=== PATIENT | male | born 1960 | race Caucasian/White ===

== ENCOUNTER 2023-12-30 06:19 | Day surgery (SDC) | payer BC, SELFPAY ==
[2023-12-30] VITALS (12 sets, daily range): BP systolic 100–146; BP diastolic 76–96; PULSE 51–78; RESP 14–17; TEMP 36.1–36.8; O2SAT 91–97
--- OUTSIDE RECORDS SUMMARY | 2023-12-30 06:24 | XMS_ITS | Clinical Summary ---
Author Organization [facility] Address [place], [place] [address] Care Team Providers Care Process Validation Engineer Name Role Phone Marcy Kapadia MD Primary Care Provider [phone] Luigi Mina MD Unavailable [phone] Allergies Active Allergy Reactions Criticality Noted Date Comments Diclofenac Rash Unknown 12/11/2005 Medications Medication Sig Dispensed Refills Start Date End Date Status multivitamin (MVI) tablet Take 1 tablet by mouth once daily. 0 07/07/2019 Active acetaminophen (TYLENOL EXTRA STRGTH) 500 mg tablet Take 1,000 mg by mouth every 6 hours if needed. 03/22/2023 Active adalimumab (Humira,CF, Pen) 40 mg/0.4 mL pnktIndications:Anky losing spondylitis, unspecified site of spine (HC) Inject 40 mg subcutaneous every 2 weeks. 2 Each 5 08/11/2023 Active Active Problems Problem Noted Date Diagnosed Date Atypical nevus 06/30/2021 Overview: 06/2021 - Severely Atypical Nevus; on the right scapular back. Excised by Dr. Santos on 08/07/21. Skin cancer 06/30/2021 Overview: 06/2021 - BCC nodular and infiltrative types; on the right paraspinal back. Excised by Dr. Santos 08/07/21. 06/2021 - BCC nodular type; on the left mid back. Mohs 10/13/21 Dr. Bruce 06/2021 - BCC nodular and infiltrative types; on the right forehead. Mohs 10/13/21 Dr. Bruce PVC's (premature ventricular contractions), right bundle in V 1 05/05/2020 Ankylosing spondylitis 12/31/2016 Left nephrolithiasis 07/01/2016 Non-intractable cyclical vomiting 07/01/2016 Backache, unspecified Overview: Chronic, cervical and lumbar; question inflammatory Depressive disorder, not elsewhere classified Overview: situational Encounters Date Type Department Care Team Description 12/27/2023 Telephone [facility] [address] [place] [address] Nina Roman MD Form 12/24/2023 4:45 PM CDT - 12/24/2023 11:59 PM CDT Hospital Encounter [address] [address] Nina Roman MD Malignant melanoma of left upper extremity including shoulder (HC) 12/24/2023 1:40 PM CDT Preop Visit [facility] [address] [place] [address] Marcy Kapadia MD Preoperative Exam (DOS 12/30/23, [facility], Dr. Roman) 12/24/2023 Travel 12/07/2023 3:30 PM CDT Office Visit [facility] [address] [place] [address] Nina Roman MD Consult (Biopsy lymph node/Spot on left forearm ) 12/07/2023 Travel 11/30/2023 1:45 PM CDT Office Visit [facility] [address] [place] [address] Nina Roman MD Consult (Lesion on left arm referred by Dr. Kapadia) 11/30/2023 Travel 11/12/2023 1:00 PM CDT Office Visit [facility] [address] [place] [address] Marcy Kapadia MD Derm Problem (lesion on left arm, started a year ago, itches, shooting pain once in awhile, turning colors); Immunization/Injecti on 11/12/2023 Travel from Last 3 Months Immunizations Name Administration Dates Next Due COVID-19 vaccine ([employer] 30mcg/0.3mL) P F, MDV 10/02/2020,09/06/2020 Pneumococcal Conj 20-valent (Prevnar 20) 024 Td, Preservative Free (age >= 7 Years) 7 Zoster (Shingrix-RZV, recombinant) 11/12/2023, Family History Medical History Relation Name Comments Diabetes Father CABG, pacer Arthritis Maternal Aunt rheumatoid Arthritis Mother Other Paternal Aunt MS Relation Name Status Comments Father Maternal Aunt Mother Paternal Aunt Social History Tobacco Use Types Packs/Day Years Used Date Smoking Tobacco: Some Days Cigarettes 0.5 20 Smokeless Tobacco: Never Tobacco Cessation:Ready to Q uit: Not Asked; Counseling Given: Yes Comments:Approx 6 cigarettes per day Alcohol Use Standard Drinks/Week Comments Yes 28 (1 standard drink = 0.6 oz pu re alcohol) 2-3 beers daily Social Connections Answer Date Recorded Frequency of Communication with Friends and Fami ly 0 03/25/2023 Financial Resource Strain Answer Date R ecorded Difficulty of Paying Living Expenses 3 03/25/2023 Difficulty of Paying Living Expenses Not on file 03/25/2023 Food Insecurity Answer Date Recorded Worried About Running Out of Food in the Last Ye ar 1 03/25/2023 Transportation Needs Answer Date Record ed Lack of Transportation (Medical) 1 03/25/2023 Housing Stability Answer Date Recorded Unable to Pay for Housing in the Last Year 1 03/25/2023 Sex and Gender Information Value Date Recorded Sex Assigned at Not on file Gender Identity Not on file Sexual Orientation Not on file Obstetrics History Last Filed Vital Signs Vital Sign Reading Time Taken Comments Blood Pressure 108/70 12/24/2023 1:25 PM CDT Pulse 78 12/24/2023 1:25 PM CDT Temperature 37 ??C (98.6 ??F) 05/08/2020 4:45 PM [employer] Respiratory Rate 12 08/11/2023 11:28 AM CDT Oxygen Saturation 95% 12/24/2023 1:25 PM CDT Inhaled Oxygen Concentration - - Weight 83.9 kg (185 lb) 12/24/2023 1:25 PM CDT Height 175.3 cm (5' 9) 03/25/2023 1:23 PM CDT Body Mass Index 27.32 03/25/2023 1:23 PM CDT Plan of Treatment Upcoming Encounters Date Type Department Care Team (Late st Contact Info) Description 12/30/2023 8:00 AM CDT Office Visit [facility] [address] [place] [address] Nina Roman MD [address] [place] [address] 08/10/2024 11:00 AM CDT Office Visit [facility] [address] [facility] [address] [place] [address] Luigi Mina MD [address] [facility] [address] [place] [address] Health Maintenance Due Date Last Done Comments Tdap 09/04/1971 HIV for age 15-65 09/04/1975 Tetanus booster 08/04/2016 08/04/2006 Depression screening for age 12+ 12/31/2017 01/01/20 17 COVID-19 vaccine series ( season) 2023 04/10/2021, 10/02/2020, 09/06/2020 Influenza for age 50-64 01/23/2024 BMI (ht and wt on same day) for age 18+ 03/25/2024 03/25/2023, 02/02/2022, 05/06/2020, Additional history exists Colonoscopy through age 75 2026 2016 Lipids for age 45-75 11/11/2028 11/12/2023, 07/08/19 17 Hepatitis C screening for ag e 18-79 Completed 09/01/2016 Pneumococcal series for age 6-64 Completed 11/12/19 24 Zoster (shingles) series for age 50+ Completed 11/12/2023, 05/01/2021 Medical Devices Implanted Type Area Employee Benefits Manager Device Identifier Shelf Expiration Date Model / Serial / Lot [id number] - [id number] Implanted:Qt y: 1 on 05/08/2020 by Ramo Dacosta MD at [facility] General Surgery Implants Right: Inguinal 11/18/2024 [id number] / / [id number] Stent Ultra 5fr 24cm [id number] - [place] Only - [id number] Implanted:Qt y: 1 on 07/02/2016 by Tez Munoz MD at [facility] Left: [employer] 03/10/2019 [id number]# / / [id number] Mesh Inguinal Lt 4.1x6.2in 3-Dlight - [id number] Implanted:Qt y: 1 on 05/08/2020 by Ramo Dacosta MD at [facility] Right: Inguinal [employer] 12/18/2024 [id number] / / [id number] Procedures Procedure Name Priority Date/Time Associated Diagnosis Comments PET CT WHOLE BODY INITIAL TREAT Routine 12/24/2023 6:04 PM CDT Malignant melanoma of left upper extremity including shoulder (HC) CBC WITH AUTO DIFFERENTIAL Routine 12/24/2023 1:50 PM CDT Pre-op exam BASIC METABOLIC PANEL Routine 12/24/2023 1:50 PM CDT Pre-op exam CBC WITH AUTO DIFFERENTIAL Routine 12/24/2023 1:50 PM CDT Pre-op exam PATH TISSUE EXAM Routine 11/30/2023 2:00 PM CDT Skin lesion of left arm CBC WITH AUTO DIFFERENTIAL Routine 11/12/2023 1:14 PM CDT Medication management PSA TOTAL SCREEN Routine 11/12/2023 1:14 PM CDT Screening PSA (prostate specific antigen) HEMOGLOBIN A1C Routine 11/12/2023 1:14 PM CDT Medication management TSH WITH REFLEX Routine 11/12/2023 1:14 PM CDT Medication management LIPID PANEL W REFLEX MEASURED LDL Routine 11/12/2023 1:14 PM CDT Medication management CBC WITH AUTO DIFFERENTIAL Routine 11/12/2023 1:14 PM CDT Medication management COMP METABOLIC PANEL Routine 11/12/2023 1:14 PM CDT Medication management SCAN-COLONOSCOPY 2016 1:00 PM CDT ANTI HCV Routine 09/01/2016 1:25 PM CDT Ankylosing spondylitis (HC) from Last 3 Months or Most Recently Relevant to Health Maintenance Results * PET CT WHOLE BODY INITIAL TREAT (12/24/2023 6:04 PM CDT) Anatomical Region Laterality Modality Positron Emissio n Tomography (PET) 12/24/2023 6:04 PM CDT Impressions 12/27/2023 3:34 PM CDT No metabolic evidence of active neoplasm Narrative 12/27/2023 3:34 PM CDT For Patients: As a result of the Century Cures Act, medical imaging exams and procedure reports are released immediately into your electronic medical record. You may view this report before your referring provider. If you have questions, please contact your health care provider. EXAM: PET CT WHOLE BODY INITIAL TREAT LOCATION: [facility] DATE: 12/24/2023 INDICATION: Initial treatment planning and staging for malignant melanoma of left upper limb, including shoulder. Index lesion in the left forearm status post excision COMPARISON: None available at time of dictation TECHNIQUE: Serum glucose level 69 mg/dL. One hour post intravenous administration of FDG 12.29 mCi, PET imaging was performed from the skull vertex to feet, utilizing attenuation correction with concurrent axial CT and PET/CT image fusion. Dose reduction techniques were used. FINDINGS: Degenerative shoulder, the, and right L5-S1 facet joint synovitis. The remaining FDG uptake is physiologic the skull vertex to feet. No acute intracranial abnormality. Mild coronary artery calcium. The lungs are clear. Left renal cysts. Nonobstructing renal calculi. Cholelithiasis. Sigmoid diverticulosis. Multilevel degenerative changes of the spine. The lower extremities are unremarkable. Procedure Note Jose Banegas MD - 12/27/2023 For Patients: As a result of the Cures Act, medical imagingexams and procedure reports are released immediately into your electronicmedical record. You may view this report before your referring provider.If you have questions, please contact your health care provider. EXAM: PET CT WHOLE BODY INITIAL TREAT LOCATION: [facility] DATE: 12/24/2023 INDICATION: Initial treatment planning and staging for malignant melanomaof left upper limb, including shoulder. Index lesion in the left forearmstatus post excision COMPARISON: None available at time of dictation TECHNIQUE: Serum glucose level 69 mg/dL. One hour post intravenousadministration of FDG 12.29 mCi, PET imaging was performed from the skullvertex to feet, utilizing attenuation correction with concurrent axial CTand PET/CT image fusion. Dose reduction techniques were used. FINDINGS: Degenerative shoulder, the, and right L5-S1 facet jointsynovitis. The remaining FDG uptake is physiologic the skull vertex tofeet. No acute intracranial abnormality. Mild coronary artery calcium. The lungsare clear. Left renal cysts. Nonobstructing renal calculi. Cholelithiasis.Sigmoid diverticulosis. Multilevel degenerative changes of the spine. Thelower extremities are unremarkable. IMPRESSION: No metabolic evidence of active neoplasm Nina Roman MD PET * (ABNORMAL) CBC WITH AUTO DIFFERENTIAL (12/24/2023 1:50 PM CDT) Only the most recent of2 resultswithin the time period is included. WHITE BLOOD COUNT 5.6 4.5 - 11.0 thou/cu mm 12/24/2023 2:19 PM CDT [facility] RED BLOOD COUNT 4.11(L) 4.30 - 5.90 mil/cu mm 12/24/2023 2:19 PM CDT [facility] HEMOGLOBIN 14.4 13.5 - 17.5 g/dL 12/24/2023 2:19 PM CDT [facility] HEMATOCRIT 42.0 37.0 - 53.0 % 12/24/2023 2:19 PM CDT [facility] MCV 102(H) 80 - 100 fL 12/24/2023 2:19 PM CDT [facility] MCH 35.0(H) 26.0 - 34.0 pg 12/24/2023 2:19 PM CDT [facility] MCHC 34.3 32.0 - 36.0 g/dL 12/24/2023 2:19 PM CDT [facility] RDW 11.0(L) 11.5 - 15.5 % 12/24/2023 2:19 PM CDT [facility] PLATELET COUNT 213 140 - 440 thou/cu mm 12/24/2023 2:19 PM CDT [facility] MPV 10.0 6.5 - 11.0 fL 12/24/2023 2:19 PM CDT [facility] % NEUT 61.8 % 12/24/2023 2:19 PM CDT [facility] % LYMPH 28.2 % 12/24/2023 2:19 PM CDT [facility] % MONO 8.2 % 12/24/2023 2:19 PM CDT [facility] % EOS 1.4 % 12/24/2023 2:19 PM CDT [facility] % BASO 0.4 % 12/24/2023 2:19 PM CDT [facility] ABSOLUTE NEUTROPHILS 3.5 1.7 - 7.0 thou/cu mm 12/24/2023 2:19 PM CDT [facility] ABSOLUTE LYMPHOCYTES 1.6 0.9 - 2.9 thou/cu mm 12/24/2023 2:19 PM CDT [facility] ABSOLUTE MONOCYTES 0.5 <0.9 thou/cu mm 12/24/2023 2:19 PM CDT [facility] ABSOLUTE EOSINOPHILS 0.1 <0.5 thou/cu mm 12/24/2023 2:19 PM CDT [facility] ABSOLUTE BASOPHILS 0.0 <0.3 thou/cu mm 12/24/2023 2:19 PM CDT [facility] Blood BLOOD SPECIMEN / Unknown Venipuncture / Unknown 12/24/2023 1:50 PM CDT 12/24/2023 1:53 PM CDT Marcy Kapadia MD HEMATOLOGY [facility] [address] [place] [address], * BASIC METABOLIC PANEL (12/24/2023 1:50 PM CDT) SODIUM 141 136 - 145 mmol/L 12/24/2023 11:05 PM CDT [facility] POTASSIUM 4.0 3.5 - 5.1 mmol/L 12/24/2023 11:05 PM CDT [facility] CHLORIDE 104 98 - 107 mmol/L 12/24/2023 11:05 PM CDT [facility] CO2,TOTAL 24 22 - 29 mmol/L 12/24/2023 11:05 PM CDT [facility] ANION GAP 13 5 - 18 12/24/2023 11:05 PM CDT [facility] GLUCOSE 86 70 - 99 mg/dL 12/24/2023 11:05 PM CDT [facility] CALCIUM 9.2 8.8 - 10.2 mg/dL 12/24/2023 11:05 PM CDT [facility] BUN 11 8 - 23 mg/dL 12/24/2023 11:05 PM CDT [facility] CREATININE 0.76 0.70 - 1.20 mg/dL 12/24/2023 11:05 PM T [facility] BUN/CREAT RATIO 14 10 - 20 11:05 PM T [facility] eGFR >90 >90 mL/min/1.7 3m2 12/24/2023 11:05 PM T [facility] Comment:As of 2021, eG FR is calculated by the CKD-EPI creatinine equation without race adjustment. ??eGFR can be influenced by muscle mass, exercise, and diet. ??The reported eGFR is an estimation only and is only applicable if the renal function is stable. Blood BLOOD SPECIMEN / Unknown Venipuncture / Unknown 12/24/2023 1:50 PM CDT 12/24/2023 1:53 PM CDT Marcy Kapadia MD CHEMISTRY [facility] [address] [place] [address], * PATH TISSUE EXAM (11/30/2023 2:00 PM CDT) Case Report Pathology Report ?Case: [id number] ? Authorizing Provider: ??Nina Roman MD ??Collected: ? 11/30/2023 1400 ? Ordering Location: ? [facility] ?? Received: ?11/30/2023 1426 ? Clinic ? Pathologist: ? Eduardo Chung MD ? Specimen: ?Left Arm, left upper arm lesion- stitch at 12 oclock or proximal ? 4 4:38 PM CDT [facility] Final Diagnosis A) SKIN, LEFT ARM, EXCISION: 1. Malignant melanoma ?? a. Maximum depth of invasion: at least 12 mm ?? b. Ulceration: Present ?? c. Margins: Peripheral: Negative; Deep: Positive 2. See comment and staging parameters below 4 4:38 PM CDT [facility] Comment A) Re-excision to obtain 2.0 cm negative margins and consideration of sentinel lymph node biopsy is recommended. Dr. Chung communicated the findings to the office of Dr. Roman via secure chat message on 12/03/2023. Case seen in consultation with Dr. Mccall. 4 4:38 PM CDT [facility] Clinical Information left upper arm lesion 4 4:38 PM T [facility] Gross Description A) Received in formalin, labeled with the patient's name and left arm lesion, is a 4.6 x 2.3 x 1.6 cm oriented skin ellipse with a suture designating 12:00. The skin surface is remarkable for a 1.6 x 1.4 x 0.6 cm raised, variegated-brown crusted lesion that is 0.2 cm from the nearest 9:00 margin. The specimen is inked as follows: 12-3 o'clock: Blue 3-6 o'clock: Green 6-9 o'clock: Red 9-12 o'clock: Yellow The specimen is entirely submitted as follows: 1. ??Tips 2-8. ??Remainder of specimen, sequentially submitted from 12:00 to 6:00 (biopsy site in cassettes 3-6) [facility] 12/01/2023 4 4:38 PM CDT [facility] Microscopic Description The final diagnosis is based on microscopic examination of appropriate sections of all specimens. A) There is a proliferation of atypical melanocytes arranged as solitary units and as nests within the epidermis. The atypical melanocytes extend into the underlying dermis. There is an associated patchy inflammatory cell infiltrate with melanophages within the superficial dermis. Immunohistochemical stains were performed (on block A4) to assess the nature of the tumor with the following results: SOX10: ? Positive in tumor cells PRAME: ? Positive (approximately 80% labeling of the lesional cells by manual morphometry) Melan-A: ? Positive in tumor cells Cytokeratin cocktail: ?Negative in tumor cells INI1: ?Retained nuclear expression in the lesional cells BAP1: ?Retained nuclear expression in the lesional cells SMA: ? Negative in tumor cells Desmin: ?Negative in tumor cells The presence of multicolored ink is confirmed on tissue sections. Support for the interpretation of this case may have included the use of immunohistochemistry and/or in situ hybridization tests that were performed by [facility] and whose performance characteristics were evaluated by pathologists from [facility]. These tests have not been cleared or approved by the U.S. Food and Drug Administration. The FDA has determined that such clearance or approval is not necessary. These tests are used for clinical purposes and should not be regarded as investigational or for research. This laboratory is certified under the Clinical Laboratory Improvement Amendments of 1988 (CLIA) as qualified to perform high complexity clinical laboratory testing. 4 4:38 PM CDT [facility] SYNOPTIC REPORTING MELANOMA OF THE SKIN: Excision, Re-Excision MELANOMA OF THE SKIN: EXCISION, RE-EXCISION ??- All Specimens 8th Edition - Protocol posted: 04/02/2021 SPECIMEN ?? Procedure: ?Excision ?? Specimen Laterality: ?Left TUMOR ?? Tumor Site: ?Skin of upper limb and shoulder: Left arm ?? Histologic Type: ?Nodular melanoma ?? Maximum Tumor (Breslow) Thickness (Millimeters): ?12 mm ?? Macroscopic Satellite Nodule(s): ?Not identified ?? Ulceration: ?Present ? Extent of Ulceration (Millimeters): ?4 mm ?? Anatomic (Ravi) Level: ?V (Melanoma invades subcutis) ?? Mitotic Rate: ?7 mitoses per mm2 ?? Microsatellite(s): ?Not identified ?? Lymphovascular Invasion: ?Not identified ?? Neurotropism: ?Present ?? Tumor-Infiltrating Lymphocytes: ?Present, nonbrisk ?? Tumor Regression: ?Not identified ?? MARGINS: ? Margin Status for Invasive Melanoma: ?Invasive melanoma present at margin ? Margin(s) Involved by Invasive Melanoma: ?Deep ? Margin Status for Melanoma in situ: ?All margins negative for melanoma in situ ?? REGIONAL LYMPH NODES: ? Regional Lymph Node Status: ?Not applicable (no regional lymph nodes submitted or found) ?? PATHOLOGIC STAGE CLASSIFICATION (pTNM, AJCC 8th Edition): ? pT Category: ?pT4b ? pN Category: ?pN not assigned (no nodes submitted or found) 4 4:38 PM CDT [facility] Additional Information Interpreted at [facility] - [address] [facility] [address], [place] [address] Immunohistochemistry controls were reviewed and approved by the pathologist during this examination. 4 4:38 PM CDT [facility] Other (Left Arm) Non-Blood / Unknown 11/30/2023 2:00 PM CDT 11/30/2023 2:26 PM CDT Nina Roman MD PATHOLOGY/CYTOLO GY Performing Organization Address [facility]/ZIP Co de Phone Number [facility] [address] [place] [id number], [place] * TSH WITH REFLEX (11/12/2023 1:14 PM CDT) TSH 3.09 0.27 - 4.20 uIU/mL 11/12/2023 10:05 PM CDT [facility] Blood BLOOD SPECIMEN / Unknown Venipuncture / Unknown 11/12/2023 1:14 PM CDT 11/12/2023 1:15 PM CDT Narrative [facility] - 11/12/2023 10:05 PM CDT In Adults, TSH values between 5.00 and 10.00 uIU/ml do not necessarily indicate the presence of Hypothyroidism. Correlation with clinical findings such as presence of goiter and/or Thyroperoxidase (TPO) Antibody may be helpful. For more information please refer to SOTO 2004; 291: 228-238. Marcy Kapadia MD CHEMISTRY Performing Organization Address City/[facility]/ZIP Co de Phone Number [facility] [address] [place] [id number], * (ABNORMAL) LIPID PANEL W REFLEX MEASURED LDL (11/12/2023 1:14 PM CDT) CHOLESTEROL,TOTAL 187 100 - 199 mg/dL 11/12/2023 10:05 PM CDT [facility] Comment: Cholesterol, Total Reference Ranges Desirable <200 mg/dL Borderline 200-239 mg/dL High >=240 mg/dL TRIGLYCERIDES 211(H) <150 mg/dL 11/12/2023 10:05 PM CDT [facility] HDL CHOLESTEROL 80 >40 mg/dL 10:05 PM CDT [facility] NON-HDL CHOLESTEROL 107 <145 mg/dl 11/12/2023 10:05 PM CDT [facility] CHOL/HDL RATIO 2.34 <4.50 11/12/2023 10:05 PM CDT [facility] LDL CHOLESTEROL 65 <=130 mg/dL 11/12/2023 10:05 PM CDT [facility] VLDL CHOLESTEROL 42(H) <=30 mg/dL 11/12/2023 10:05 PM CDT [facility] PROVIDER ORDERED STATUS RANDOM 11/12/2023 10:[address] [facility] Blood BLOOD SPECIMEN / Unknown Venipuncture / Unknown 11/12/2023 1:14 PM CDT 11/12/2023 1:15 PM CDT Marcy Kapadia MD CHEMISTRY Performing Organization Address City/[facility]/ZIP Co de Phone Number [facility] [address] [place] [address], * HEMOGLOBIN A1C MONITORING (POCT) (11/12/2023 1:14 PM CDT) HEMOGLOBIN A1C MONITORING (POCT) 5.0 <=6.4 % 11/12/2023 1:37 PM CDT [facility] Blood BLOOD SPECIMEN / Unknown Venipuncture / Unknown 11/12/2023 1:14 PM CDT 11/12/2023 1:15 PM CDT Narrative [facility] - 11/12/2023 1:37 PM CDT ? (<=6.9%) ? Indicates good control ? (7.0% to 7.9%) ? Indicates fair control ? (>=8.0%) ? Indicates poor control ?? NOTE: ??These thresholds are guidelines and ?individual targets may vary. Falsely low levels may be seen with: Recent Transfusion, Recent Significant Blood Loss, Hemolytic Diseases, or Falsely elevated levels may be seen with: Untreated Anemias, Splenectomy ? Marcy Kapadia MD CHEMISTRY Performing Organization Address City/[facility]/ZIP Co de Phone Number [facility] [address] [place] [address], * (ABNORMAL) COMP METABOLIC PANEL (11/12/2023 1:14 PM CDT) SODIUM 140 136 - 145 mmol/L 11/12/2023 10:05 PM CDT [facility] POTASSIUM 3.5 3.5 - 5.1 mmol/L 11/12/2023 10:05 PM CDT [facility] CHLORIDE 103 98 - 107 mmol/L 11/12/2023 10:05 PM T [facility] CO2,TOTAL 29 22 - 29 mmol/L 11/12/2023 10:05 PM T [facility] ANION GAP 8 5 - 18 11/12/2023 10:05 PM T [facility] GLUCOSE 113(H) 70 - 99 mg/dL 11/12/2023 10:05 PM T [facility] CALCIUM 9.1 8.8 - 10.2 mg/dL 11/12/2023 10:05 PM T [facility] BUN 10 8 - 23 mg/dL 11/12/2023 10:05 PM T [facility] CREATININE 0.77 0.70 - 1.20 mg/dL 11/12/2023 10:05 PM T [facility] BUN/CREAT RATIO 13 10 - 20 4 10:05 PM T [facility] eGFR >90 >90 mL/min/1.7 3m2 11/12/2023 10:05 PM T [facility] Comment:As of 2021, eG FR is calculated by the CKD-EPI creatinine equation without race adjustment. ??eGFR can be influenced by muscle mass, exercise, and diet. ??The reported eGFR is an estimation only and is only applicable if the renal function is stable. ALBUMIN 3.7(L) 4.0 - 4.9 g/dL 11/12/2023 10:05 PM CDT [facility] PROTEIN,TOTAL 5.8(L) 6.0 - 8.0 g/dL 11/12/2023 10:05 PM CDT [facility] BILIRUBIN,TOTAL 1.0 0.0 - 1.2 mg/dL 11/12/2023 10:05 PM CDT [facility] ALK PHOSPHATASE 92 40 - 129 IU/L 11/12/2023 10:[address] [facility] ALT (SGPT) 24 10 - 50 IU/L 11/12/2023 10:[address] [facility] AST (SGOT) 29 10 - 50 IU/L 11/12/2023 10:[address] [facility] Blood BLOOD SPECIMEN / Unknown Venipuncture / Unknown 11/12/2023 1:14 PM CDT 11/12/2023 1:15 PM CDT Marcy Kapadia MD CHEMISTRY [facility] [address] [place] [address], * PSA TOTAL SCREEN (11/12/2023 1:14 PM CDT) PSA TOTAL (SCREEN) 0.38 <4.00 ng/mL 11/12/2023 10:05 PM CDT [facility] Blood BLOOD SPECIMEN / Unknown Venipuncture / Unknown 11/12/2023 1:14 PM CDT 11/12/2023 1:15 PM CDT Narrative [facility] - 11/12/2023 10:05 PM CDT The test method changed on 11/17/2022. If this test has been used for serial monitoring, rebaselining is recommended. Rebaselining consists of 2 measurements, collected 3-6 weeks apart. The Arianna Elecsys total PSA assay is an electrochemiluminescence immunoassay ECLIA performed on the Arianna May e immunoassay analyzers. Values obtained with different assay methods may be different and cannot be used interchangeably. Marcy Kapadia MD [facility] [address] [place] [address], * SCAN-COLONOSCOPY (2016 1:00 PM CDT) Narrative Procedure Note Lawrence Santos MD - 2016 11:16 AM CDT [address], [address], [place] [address] Patient Name: Simone Burgos Gender: Male Exam Date: 2016 Visit Number: [id number] Age: 56 Years Date of : 1960 Attending MD: Lawrence Santos MD Medical Record#: [id number] ----- Procedure: Colonoscopy Indications: Colorectal cancer screening Referring MD: Marcy Kapadia MD Primary MD: Marcy Kapadia MD Medications: Admitting Medications: 0.9% Normal Saline at TKO Intra Procedure Medications: Patient received monitored anesthesia care. Complications: No immediate complications Procedure: An examination of the heart and lungs was performed and found to be withinacceptable limits. The patient was therefore deemed a reasonablecandidate for endoscopy and monitored anesthesia care. The risks and benefits of the procedure were explained to the patient.After obtaining informed consent, the patient received monitoredanesthesia care and I passed the scope without difficulty via the rectum to the cecum. The appendiceal orificeand ic valve were identified. The scope was retroflexed during theexamination The quality of the prep was excellent (Miralax/Gatorade/2tablets Bisacodyl/Magnesium Citrate). This was a complete examination throughout the entire colon. Findings: Normal finding. Location - entire colon. Anal canal: normal Impression: Colon cancer screening Normal colonoscopy Plan Repeat colonoscopy in 10 years. If you have signs or symptoms of lower GI illness or a new diagnosis ofcolon cancer in an immediate family member, you should contact your GIprovider or your primary provider to discuss whether your next examshould be repeated sooner. We will attempt to contact you at appropriate intervals via [place] mail. Wemay not be able to find you or contact you at that time, therefore youshould know that the responsibility for following our recommendation restswith you. If you don't hear from us at the time your procedure is due,please contact our office to schedule an appointment. If your contactinformation should change, please contact our office so that we can updateyour records. Return to your primary care provider as needed. Recommendation Comments: Call if questions or concerns arise in theinterim-leave message with Marybeth Electronically signed by: Lawrence Santos MD 2016 Medications: Medication Dose Sig Description Comments Advil 200 mg tablet 200 mg take 2 tablet by ORAL route every 6 hours asneeded with food Allergies: Medication Name Ingredient Reaction Comment NO KNOWN DRUG ALLERGIES Vital Signs: Date Time Systolic Diastolic Height Weight BMI 2016 1214 PM 126 85 72 in 205.00 27.80 Race: Ethnicity: Not or Preferred Language: Israeli cc: Marcy Kapadia MD cc: Kang BARRERA, Marcy Kenyon [facility] [phone] Lawrence Santos MD OTHER * ANTI HCV (09/01/2016 1:25 PM CDT) HEPATITIS C ANTIBODY Non-Reacti ve Non-Reacti ve 09/01/2016 6:28 PM CDT [facility] Blood BLOOD SPECIMEN / Unknown Venipuncture / Unknown 09/01/2016 1:25 PM CDT 09/01/2016 1:26 PM CDT Narrative [facility] - 09/01/2016 6:28 PM CDT Antibodies to HCV not detected; does not exclude the possibility of exposure to HCV. Luigi Mina MD [facility] [address] [place] [address], from Last 3 Months or Most Recently Relevant to Health Maintenance Advance Directives * Full Code (Latest Code Status on File) Date Activated Date Inactivated Comments 05/08/2020 4:43 PM 05/08/2020 9:08 PM Question Answer Comments Code Status Discussion: Discussed * Full Code Date Activated Date Inactivated Comments 05/08/2020 12:05 PM 05/08/2020 4:43 PM Question Answer Comments Code Status Discussion: Not Discussed * Full Code Date Activated Date Inactivated Comments 07/01/2016 9:53 AM 07/03/2016 2:45 PM Question Answer Comments Code Status Discussion: Discussed * Full Code Date Activated Date Inactivated Comments 07/01/2016 1:57 AM 07/01/2016 9:53 AM Care Teams Process Validation Engineer Relationship Specialty Start Date End Date Marcy Kapadia MD [address] [place] [address] PCP - General Family Practice 12/26/15 Luigi Mina MD [address] [facility] [address] [facility] [address] [place] [address] Rheumatology Rheumatology 09/01/16
[2023-12-30] MEDS: SODIUM CHLORIDE 0.9 % (FLUSH) 10 ML SYRINGE IVF (07:30)
--- NOTE | 2023-12-30 08:00 | CRLHL7_ITS ---
For Patients: As a result of the 21st Century Cures Act, medical imaging exams and procedure reports are released immediately into your electronic medical record. You may view this report before your referring provider. If you have questions, please contact your health care provider. INDICATION: Malignant melanoma left forearm. Injection for sentinel lymph node scintigraphy. The on-site staff discussed the risks and benefits of the procedure. The patient agreed to proceed. Utilizing sterile technique, 780 microcuries Tc-99m filtered Sulfur Colloid was injected within an intradermal location about the left anterior forearm lesion. The patient tolerated the injection well. No immediate complications were documented. No subsequent imaging. IMPRESSION: Technically successful injection for malignant melanoma of the left upper extremity. Javier Glynn M.D. Diagnostic/Nuclear Medicine Radiologist [email or web address] Transcribed: 10:16 am DW/Dictated by: Javier Glynn MD @ 12/30/2023 9:49:00 AM (Electronically Signed)
--- NOTE | 2023-12-30 08:13 | W.ANESCHARGE ---
Anesthesia Charges Start Date/Time Anesthesia Start Date: 12/30/23 Anesthesia Start Time: 09:50 Stop Date/Time Anesthesia Stop Date: 12/30/23 Anesthesia Stop Time: 13:36
[2023-12-30] MEDS: LACTATED RINGERS 1000 ML 1,000 ML 100 ML IV ×2 (09:15→10:25)
--- NOTE | 2023-12-30 09:45 | W.PM.H&PU ---
History & Physical Update History & Physical Update H&P Reviewed and patient assessed: No changes noted
--- NOTE | 2023-12-30 09:46 | PM.GSPRC ---
Operative Note Date of procedure: 12/30/23 Pre-op diagnosis: Malignant melanoma of the left arm, 12 mm depth with ulceration Post-op diagnosis: Same Type of Procedure: 1. Wide local excision with 2 cm margins, left arm malignant melanoma 2. Full-thickness skin graft, left thigh donor 3. Left axillary sentinel node biopsy Indications: The patient is a 63-year-old male who presented to clinic with a lesion on his left arm. This was excised. It was found to be a malignant melanoma with at least 12 mm in thickness as well as ulceration. The case was discussed with oncology and given its size, a PET scan was recommended. This was performed. No evidence of metastatic disease was noted. I then recommended wide excision with possible need for skin graft for wound closure as well as sentinel node biopsy. Procedure Description: After discussing the risks and benefits of the procedure, the patient signed informed consent.? The operative site was marked and the patient was brought to the operating room and placed on the operating table in supine position.? Care was taken to pad the patient's pressure points.?? The patient was then intubated by anesthesia.?? The operative site was then prepped and draped in the usual sterile fashion.? A time-out was then performed. I began with the sentinel node biopsy. Patient had previously undergone lymphoscintigraphy, identifying nodes in the left axilla. 10 minutes prior to the incision time, I injected 3 ml isosulfan blue dye around the patient's excision site in his left arm. This was massaged for 3 min. An incision was made in the left axilla just below the hairline. The probe was brought into the field. A strong signal was noted and dissection was taken down through the clavipectoral fascia into the axillary fat. The probe was used to identify a blue node and this was carefully dissected free of the surrounding fat using cautery. There appeared to be 2 nodes that were adjacent to each other. These en bloc. They had a strong signal of over 500. The probe was placed back into the axilla. There was a signal that was greater than 10% of this deeper in the axilla under the pectoralis muscle. I was then able to identify another node. This node also appeared blue. This node was carefully dissected. Its lymphatic channel was clipped. Ex vivo this signal was 200. The probe was placed back into the wound bed and no further signal was noted. There were no further blue nodes or blue lymphatic channels noted. Hemostasis appeared excellent. The wound was then closed with 3-0 Vicryl in the clavipectoral fascia, 3-0 Vicryl interrupted dermal and 4-0 Monocryl running subcuticular sutures. Sterile dressings were then applied. Attention was then turned to the melanoma excision. The patient's left arm and thigh were then prepped and draped sterilely. I began by marking out a 2 cm reno-sparks around the previously excised lesion. Of note the deep margin was positive, however the other margins were negative. A knife was used to make an incision down to the subcutaneous fat. Cautery was then used to take dissection down to fascia. Once the fascial layer was reached, the specimen was taken on the deep tissue using cautery. I did take muscle fascia below the lesion itself given its depth. There was no clinical evidence of tumor however. Small subcutaneous veins were ligated with 3-0 Vicryl. The specimen was marked with a stitch at 12 o'clock or proximal. This was sent to pathology for permanent section. I then examined the wound. The patient had a fair amount of laxity to his arm, despite the large tissue defect. I began by creating subcutaneous flaps just above the muscle. Medially this was easily done, however posteriorly and inferiorly around the wound approached the elbow, so I was only able to undermine for approximately 2 cm. Once this was done, the wound came together fairly easily in an oblique fashion with right tension only at the most medial aspect. I began by reapproximating the edges again in an oblique fashion. This was done with 3-0 Vicryl. The middle 3 cm were left open because the skin here seemed to be under too much tension. The patient's arm was flexed and extended to ensure that the sutures that I had placed were not too tight so as to form a tourniquet on the arm. His arm remained soft. Once this was done, I examined the dog ears at the proximal and distal aspect the closure. These were excised using a knife. They were labeled and sent as additional proximal and distal margin and stitch for orientation. Once this was done the incision was closed at both ends using 3-0 Vicryl dermal sutures. 3-0 nylon vertical mattress sutures were then used to close the skin. I then turned my attention to harvesting a portion of skin for the graft. Again, moving his arm revealed that the area of defect was 1 x 3 cm. With his arm flexed this defect was 1.5 cm. Therefore I identified an area on his left thigh as a donor site. Local anesthetic was injected into the skin and subcutaneous tissue a 1.5 x 4 cm area was marked out. Knife was used to take dissection down to subcutaneous fat. The lesion was excised. Skin was closed with 3-0 Vicryl dermal and 4-0 Monocryl running subcuticular suture. Sterile dressings were applied. The specimen which had been placed in saline was then obtained and the fatty tissue was removed from the dermis. The graft was then fenestrated. Hemostasis appeared excellent at this point. The graft was brought to the arm wound and positioned. 3-0 chromic was then used to secure the graft circumferentially to the skin. In the midportion, the graft was stitch to the muscle below. The tails of the chromic suture were left long to bolster a dressing of Xeroform and gauze to hold the graft in place. Once this was done, Xeroform was placed over the length of the wound. The wound was wrapped in cast padding with care to pad his elbow. A fiberglass splint was then placed keep his arm in a flexed position. Pressure points were checked to ensure appropriate padding. This was then wrapped in Kerlix and an Aguilar wrap. Patient was then placed in a sling. ? The patient was then woken and transported to the recovery area in stable condition. ? The patient tolerated the procedure well. Findings: 3 sentinel lymph nodes identified Anesthesia: GETA Surgeon: Nina Roman MD Specimen: Other Additional Specimen Information: 1. Left axillary sentinel lymph nodes 2. Left arm melanoma excision, stitch 12 clock/proximal 3. Left arm melanoma excision, additional distal margin, stitch is 6 o'clock/distal 4. Left arm melanoma excision, additional proximal margin, stitch is 12 o'clock/proximal Condition: stable Disposition: PACU Primary Cutaneous Melanoma Operation Performed with Curative Intent: Yes Original Breslow thickness of the lesion: Depth in mm 13 Clinical margin width (measured from the edge of the lesion or the prior excision scar): 2 cm Depth of Excision: Full thickness skin/subcutaneous tissue down to fascia (melanoma)
[2023-12-30] MEDS: METHYLENE BLUE 1 % 10 ml 100 MG INJECTION (10:02)
[2023-12-30] MEDS: CEFAZOLIN 1 GM inj IVP ×2 (10:12→10:20)
[2023-12-30] MEDS: BUPIVACAINE 0.25% 30 ML INJECTION (10:36)
[2023-12-30] MEDS: BACITRACIN OINTMENT BULK TUBE 1 APPLIC TOPICAL (13:08)
[2023-12-30] MEDS: fentaNYL 100 MCG/2 ML inj 50 MCG IVP ×2 (13:40→13:49)
--- NOTE | 2023-12-30 13:42 | W.ANESCHARGE ---
Anesthesia Charges Start Date/Time Anesthesia Start Date: 12/30/23 Anesthesia Start Time: 09:50 Stop Date/Time Anesthesia Stop Date: 12/30/23 Anesthesia Stop Time: 13:36
--- NOTE | 2023-12-30 14:07 | SUR.PHASEI ---
patient met discharge criteria per anesthesia
[2023-12-30] MEDS: HYDROCODONE-ACETAMIN 5-325 MG 1 TAB PO (14:30)
== END 2023-12-30 15:36 | disposition home or self-care (01) ==
PROVIDERS: PCP Student in an Organized Health Care Education/Training Program; Visit Provider Surgery
PROC: (CPT 11606; principal; 2023-12-30 09:15)
PROC: (CPT 11606; 2023-12-30 09:15)
DX: C43.62 Malignant melanoma of left upper limb, including shoulder (principal)
CPT/HCPCS: 11606; 15220; 38525; 01610; 78195; 88305; 88307; 88342; A4580; A9270; A9541; J0330; J0665; J0690; J1100; J2250; J2405; J2704; J3010; J7120; L3670

== ENCOUNTER 2024-01-20 10:31 | Outpatient (RCR) | payer BC, SELFPAY | END 2024-07-18 23:59 | disposition home or self-care (01) | LOC: CCIC 10:31 | PROVIDERS: PCP Student in an Organized Health Care Education/Training Program; Visit Provider Internal Medicine Hematology & Oncology | DX: C43.62 Malignant melanoma of left upper limb, including shoulder (principal); M45.2 Ankylosing spondylitis of cervical region | CPT/HCPCS: 99202; 99205 ==

== ENCOUNTER 2024-01-25 15:30 | Outpatient (RCR) | payer BC, SELFPAY | END 2024-05-24 23:59 | disposition home or self-care (01) | PROVIDERS: Visit Provider Surgery | DX: C43.62 Malignant melanoma of left upper limb, including shoulder (principal); I89.0 Lymphedema, not elsewhere classified; Z51.89 Encounter for other specified aftercare | CPT/HCPCS: 97140; 97165; 97535 ==